=== PATIENT | female | born 1995 | race Hispanic/Latino ===

== ENCOUNTER 2019-11-15 02:20 | Inpatient (IN) | payer BC ==
[2019-11-15 02:55] VITALS: BMI 26.0
[2019-11-15] MEDS ORDERED: Carboprost 250 MCG/ML AMP IM PRN (03:44)
[2019-11-15] MEDS ORDERED: Methylergonovine 0.2 MG/ML VIAL IM PRN (03:44)
[2019-11-15] MEDS ORDERED: Ondansetron PF 4 MG/2 ML Vial IVP PRN ×3 (03:44→10:46)
[2019-11-15] MEDS ORDERED: Ibuprofen 800 MG TAB PO PRN (03:44)
[2019-11-15] MEDS ORDERED: Diphenoxylate HCl/Atropine Tablet PO PRN (03:44)
[2019-11-15] MEDS ORDERED: Acetaminophen 500 MG TAB PO PRN (03:44)
[2019-11-15] MEDS ORDERED: hydrALAZINE 20 MG/ML VIAL SLOW IVP PRN ×2 (03:44→10:46)
[2019-11-15] MEDS ORDERED: Lidocaine 1% (PF) 30 ML VIAL SC PRN (03:44)
[2019-11-15] MEDS ORDERED: Promethazine HCl 25 MG/ML VIAL IM PRN ×2 (03:44→05:19)
[2019-11-15] MEDS ORDERED: NS / Oxytocin 40 units/1000ml 1,000 ML IV PRN (03:44)
[2019-11-15] MEDS ORDERED: Misoprostol 200 MCG TAB PR PRN (03:44)
[2019-11-15] MEDS ORDERED: Lactated Ringer's 1,000 ML IV SCH (03:45)
--- NOTE | 2019-11-15 03:54 | PDOC.BPN ---
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 No VB, no LOF. CX 4cm on arrival Vitals WNL Cat 1 [address] Direct [address] to [address] Oconnell for Labor at full term. GBS negative.Please see full H& P by DR Rubi who saw the patient with me. I have seen the patient at bedside. I will notify Anish at 6AM
--- NOTE | 2019-11-15 03:56 | PDOC.LDHP ---
Labor and Delivery H&P Chief complaint: contractions HPI: Patient is a 24 yo at 39.1 weeks by LMP c/w 11.6 wk U/S who presents to L&D with complaint of contractions that started around 2100 on 11/14/2019. Patient says at around 1900 on 11/13 she passed a large amount of blood-tinged mucus and has continued to pass mucus-like discharge since. No overt bleeding seen. Then around 2100 started to feel contractions across her lower abdomen that are occurring about every 5 minutes. Patient endorses good movement. Denies any headaches, vision changes, chest pain, n/v, diarrhea, swelling. Her initial cervical check is 4/80/0, midposition, soft. Patient is followed by [facility] [employer] Dr. Oconnell, states that has not had any maternal problems with this . Her baby was noted to have left-sided pyelectasis which will need to be followed up after delivery. Current gestational age (weeks): 39 (39.1 wks by LMP c/w US) Due date: 11/21/19 Dating criteria: last menstrual period (c/w 11.6 week U/S) Grav: 2 Para: 1 (1001) OB History Details: 1 prior in 2017 @ 39.4 wks, required episiotomy at time of delivery Current complications: none Abnormal US findings: Yes (left pyelectasis on fetus) Past Medical History: unremarkable Current medications: pre-sully vitamins Previous surgical history: none Allergies/Adverse Reactions: Allergies Allergy/AdvReac Type Severity Reaction Status Date / Time No Known Allergies Allergy Verified 11/15/19 02:47 Social history: none (no tobacco or EtOH use) - Physical Exam Vital signs reviewed and normal: yes (BP 111/78, HR 55, FHT 145 bpm) General: NAD, resting, breathing through contractions Heart: RRR Lungs: nonlabored breathing Abdomen: gravid Extremeties: no edema FHT: category 1, variability present [place] contractions every: 3-5 min - Vaginal Exam cm dilated: 4 Effacement: 75% Station: 0 - OB Labs Blood type: A RH: positive Antibody Screen: negative HIV: negative RPR: negative HEPSAg: negative 1 hour GCT: negative GBS: negative Urine drug screen: not done Rubella: immune - Assessment L&D Assessment: term patient in labor - Plan Plan: admit to L&D, labor augmentation if indicated, anesthesia consult for pain management (for epidural placement) -: Patient is a 24 yo at 39.1 weeks today who is admitted to L&D in latent labor: Third Trimester , at term, in latent labor -currently at 39.1 weeks by LMP/11.6 wk U/S -initial cervical check 4/80/0, mid-position, soft--Hollingsworth Score of 10 -place on continuous external monitoring, baseline FHT 145 bpm -currently linnea about q3min, sometimes spacing out to q5min -serial cervical checks -patient desires epidural, has watched video, will place Anesthesia consult -Growth U/S on 10/12/2019 shows [place]lock 37%, left pyelectasis in fetus -IOB labs reviewed, Pap in Apr 2019 with NILM, GBS NEGATIVE -expectant labor management, will provide labor augmentation if needed Dispo: Stable, admit to inpatient on L&D unit. Continue expectant labor management with anticipation of .
[2019-11-15] MEDS ORDERED: Fentanyl 4 mcg/Bup 0.1% Cadd 100 ML ONE (04:28)
[2019-11-15 04:32] LABS: Mean Corpuscular HGB CONC 34.3 g/dL (32.0-36.0); Mean Corpuscular Hemoglobin 30.6 pg (27.0-31.0); Mean Corpuscular Volume 89.1 fL (78.0-98.0); Mean Platelet Volume 11.5 fL (7.4-10.4); Platelet Count 133 thou/uL (130-400); RBC Distribution Width 11.8 % (11.5-14.5); Red Blood Cell (RBC) Count 4.56 mill/uL (4.20-5.40); White Blood Cell (WBC) Count 9.2 thou/uL (4.8-10.8)
[2019-11-15 05:11] LABS: HBSAg Index 0.32 S/CO (0-0.99); Hep B Surf Ag Non-Reactive S/CO (NonReactive)
[2019-11-15 05:12] LABS: Syphilis Antibody Nonreactive (Nonreactive); Syphilis Antibody Index 0.03 S/CO (<1.00 Non-Reactive)
[2019-11-15] MEDS ORDERED: Lactated Ringer's 500 ML IV PRN (05:19)
[2019-11-15] MEDS ORDERED: diphenhydrAMINE 50 MG/ML VIAL IVP PRN (05:19)
[2019-11-15] MEDS ORDERED: Naloxone HCl 0.4 mg/ml Vial IVP PRN ×2 (05:19)
[2019-11-15] MEDS ORDERED: Acetaminophen 325 MG TAB PO PRN (05:19)
[2019-11-15] MEDS ORDERED: EPHEDRINE 25 MG/5 ML SYRINGE SLOW IVP PRN (05:19)
[2019-11-15] MEDS ORDERED: Communication Order-Pharmacy FS SCH (05:30)
[2019-11-15] MEDS ORDERED: Fentanyl 4 mcg/Bupivacaine 0.1% Cassette 100 ML EPIDURAL SCH (05:30)
--- NOTE | 2019-11-15 06:02 | PDOC.LDPN ---
Labor & Delivery Progress Note - Subjective Subjective: comfortable, no concerns - Objective Vital signs reviewed and normal: yes General: NAD, resting Uterine fundus: non tender SVE: 4/80/0, bulging bag palpable Dilation: 4 Effacement: 75% Station: 0 FHT: category 1, variability present [place] contractions every: 5 min - Assessment (1) Third trimester Code(s): Z34.93 - ENCNTR FOR SUPRVSN OF NORMAL PREG, UNSP, THIRD TRIMESTER Current Visit: Yes Status: Acute Plan: continue plan of care -: Patient is a 24 yo at 39.1 weeks today who is admitted to L&D in latent labor: Third Trimester , at term, in latent labor -currently at 39.1 weeks by LMP/11.6 wk U/S -initial cervical check 4/80/0, mid-position, soft--Hollingsworth Score of 10-- @ 0300 on 11/14 -check @ 0600: 4/80/0 -place on continuous external monitoring, baseline FHT 135 bpm -currently linnea about q3-5min -serial cervical checks -Anesthesia consult-patient desires epidural, has watched video -epidural placed 0545, graves placed 0600 on 11/14 -Growth U/S on 10/12/2019 shows Hadlock 37%, left pyelectasis in fetus -IOB labs reviewed, Pap in Apr 2019 with NILM, GBS NEGATIVE -expectant labor management, will provide labor augmentation if needed Dispo: Continue expectant labor management. Continue to monitor, if no change at next check then consider labor augmentation.
--- NOTE | 2019-11-15 06:41 | PDOC.BPN ---
- Brief Progress Note Still 4cm..I will order oxytocin augmentation.
[2019-11-15] MEDS ORDERED: NS w/ Oxytocin 10 units 500 ML IV SCH (06:45)
--- NOTE | 2019-11-15 07:02 | PDOC.BPN ---
- Brief Progress Note Performed AROM using amnio-hook at 0650, patient tolerated well. Initial return of clear fluid, then meconium stained fluid. After procedure cervical check is now 6/80/0, midposition, soft. Will continue to monitor.
--- NOTE | 2019-11-15 09:06 | PDOC.OPDEL ---
OB Operative/Delivery Note - Additional Findings/Plan Compilations/Other Findings: Delivering Physician: Lisa Esquivel MD PGY-3 Attending: Dr Iraj Lino Procedure: Spontaneous Vaginal Delivery Anesthesia: epidural QBL: 160 ml Pre-op Diagnosis: 1. Term intrauterine in labor Post-op Diagnosis: 1. Term intrauterine , delivered Indications: A 24y/o female presents in active labor Delivery Note: This is 24yo F @ 39.1wks who delivered a viable F at 0847. Following an uneventful antepartum course, a vigorous female was delivered over an intact perineum in the occipitoanterior position. Anterior Shoulder and then remainder of the body delivered. No nuchal cord. The head was held down and mouth and nares were bulb suctioned. Cord clamped and cut and cord blood collected. Placenta delivered intact with a 3 vessel cord noted. Fundal massage was performed and the fundus was firm. The cervix and vagina were inspected and found to have a 1st degree perineal laceration that was hemostatic and did not require repair. went to nursery in good condition for routine care. Apgars were 8/9 at 1 & 5 minutes, respectively. Patient tolerated delivery well and went to after routine recovery/ care. Addendum - Attending - Attending Attestation Date/Time: 11/16/19 2146 I personally evaluated the patient and discussed the management with Dr. Esquivel I agree with the History, Examination, Assessment and Plan documented above with any addition or exceptions noted below. I was present for the entire 2nd and 3rd stages of labor gloved giving hands on instruction and supervising.
[2019-11-15] MEDS: NS / Oxytocin 40 units/1000ml 1,000 ML IV SCH ×2 (09:30→12:03)
[2019-11-15] MEDS ORDERED: Milk Of Magnesia 30 ML UDCUP PO PRN (10:46)
[2019-11-15] MEDS ORDERED: Lanolin Ointment 7 GM TUBE TOP PRN (10:46)
[2019-11-15] MEDS ORDERED: Preparation H Ointment 28 GM TUBE PR PRN (10:46)
[2019-11-15] MEDS ORDERED: Bisacodyl 10 MG SUPP PR PRN (10:46)
[2019-11-15] MEDS ORDERED: Bupivacaine/Epinephrine 0.25% 30 ML VIAL ONE (11:25)
[2019-11-15 12:26] LABS: SARS-CoV-2 MS2 Positive; SARS-CoV-2 N Gene Negative; SARS-CoV-2 S Gene Negative; SARS-CoV-2 by NAA Not Detected (NotDetected); SARS-CoV-2 orf1ab Negative
[2019-11-15] MEDS: Ibuprofen 800 MG TAB PO SCH ×2 (13:35→20:59)
[2019-11-15] MEDS: Ferrous Sulfate 325 MG TAB PO SCH (18:44)
[2019-11-15] MEDS: Docusate Calcium (SURFAK) 240 MG CAP PO SCH (20:59)
[2019-11-16] MEDS: Ibuprofen 800 MG TAB PO SCH (05:36)
[2019-11-16] MEDS: Ferrous Sulfate 325 MG TAB PO SCH ×2 (06:55→06:56)
--- NOTE | 2019-11-16 08:10 | PDOC.PP ---
Post Progress Note Post Day #: 1 Subjective: feeding well, no concerns, minimal lochia and pain PO intake tolerated: yes Flatus: yes Ambulation: yes Vital Signs (12 hours) Temp Pulse Resp BP Pulse Ox 11/16/19 04:16 98.1 F 63 18 109/54 L 98 11/16/19 00:15 98.2 F 65 18 100/61 18 L 11/15/19 20:13 98.1 F 56 L 16 106/65 98 Weight Weight 147 lb - Physical Examination Respiratory: non-labored breathing Abdominal: no distention Neurological: no gross focal deficits Psychiatric: A&Ox3, normal affect Result Diagrams: 11/15/19 04:21 Additional Labs: Post Labs Blood Type A POSITIVE 11/15/19 04:21 Hep Bs Antigen Non-Reactive S/CO (NonReactive) 11/15/19 04:22 (1) Vaginal delivery Code(s): O80 - ENCOUNTER FOR FULL-TERM UNCOMPLICATED DELIVERY Status: Acute (2) Term Code(s): Z34.80 - ENCOUNTER FOR SUPRVSN OF NORMAL , UNSP TRIMESTER Status: Acute - Assessment/Plan PPD1 doing well, plan for DC today after renal US w noted left renal pelvis dilation during care.
[2019-11-16] MEDS: Docusate Calcium (SURFAK) 240 MG CAP PO SCH (08:28)
[2019-11-16 08:37] VITALS: BP 108/59; TEMP 98
[2019-11-16] MEDS ORDERED: Prenatal Vitamin 1 TAB PO SCH (09:00)
[2019-11-16] MEDS ORDERED: Polyethylene Glycol 3350 17 GM Packet PO SCH (09:00)
[2019-11-16] MEDS ORDERED: Adacel (T-DAP) 0.5 ML SYRINGE IM ONE (10:46)
== END 2019-11-16 13:43 | disposition home or self-care (01) | DRG 807 ==
LOC: L&D/OP 02:20 → L&D 03:51 → 3SW 12:14
PROVIDERS: ADMIT Obstetrics & Gynecology; ATTEND Obstetrics & Gynecology
PROC: 10E0XZZ Delivery of Products of Conception, External Approach (ICD-10-PCS; principal; 2019-11-15)
PROC: 10907ZC Drainage of Amniotic Fluid, Therapeutic from Products of Conception, Via Natural or Artificial Opening (ICD-10-PCS; 2019-11-15)
DX: O35.8XX0 Maternal care for other (suspected) fetal abnormality and damage, not applicable or unspecified (principal); Z37.0 Single live birth; O70.0 First degree perineal laceration during delivery; Z3A.39 39 weeks gestation of pregnancy
CPT/HCPCS: 36415; 51702; 85027; 86780; 86850; 86900; 86901; 87340; 87635; 99285; J2590; U0003